=== PATIENT | female | born 1985 | race Hispanic/Latino ===

== ENCOUNTER 2020-10-22 21:39 | Observation (INO) | payer MEDICAID ==
[~2020-10-22] VITALS: Ht 165.1 cm; Wt 79.4 kg
[~2020-10-22 21:39] MED LIST: NITR100C PO
[2020-10-22 22:16] LABS: BASOPHILS % (AUTO) 0.3 % (0.0-5.0); EOSINOPHILS % (AUTO) 1.3 % (0.0-8.0); HEMATOCRIT 40.4 % (36-48); LYMPHOCYTES % (AUTO) 21.2 % (21.0-51.0); MEAN CORPUSCULAR HEMOGLOBIN 28.4 pg (27.0-33.0); MEAN CORPUSCULAR HGB CONC 33.9 g/dL (32.0-36.0); MEAN CORPUSCULAR VOLUME 83.8 fL (79-99); MONOCYTES % (AUTO) 5.5 % (3.0-13.0); NEUTROPHILS % (AUTO) 71.4 % (40.0-77.0); PLATELET COUNT (AUTO) 288 K/uL (130-400); RED BLOOD CELL COUNT(AUTO) 4.82 MIL/uL (4.00-5.50); RED CELL DISTRIBUTION WIDTH 12.3 % (11.0-15.5); WHITE BLOOD COUNT (AUTO) 10.9 K/uL (4.8-10.8)
[2020-10-22 22:24] LABS: CREATININE 0.5 mg/dL (0.5-1.5); POTASSIUM 3.5 mmol/L (3.5-5.1)
[2020-10-22] MEDS ORDERED: ONDANSETRON HCL 4 MG/2 ML VIAL ONE (23:19)
[2020-10-22] MEDS ORDERED: MORPHINE SULFATE 4 MG/1ML SYG ONE (23:20)
[2020-10-23] VITALS (22 sets, daily range): BP systolic 95–145; BP diastolic 48–98
[2020-10-23] MEDS: LACTATED RINGERS 1000ML 1,000 ML IV SCH ×2 (06:26→10:34)
[2020-10-23] MEDS ORDERED: SUCCINYLCHOLINE 200MG/10ML SYR ONE (06:33)
[2020-10-23] MEDS ORDERED: LIDOCAINE PF 2% 5ML ABBOJECT ONE (06:33)
[2020-10-23] MEDS ORDERED: MIDAZOLAM HCL 1 MG/ML 2ML VIAL ONE (06:33)
[2020-10-23] MEDS ORDERED: PROPOFOL 10 MG/ML 20ML VIAL IV ONE (06:34)
[2020-10-23] MEDS ORDERED: ROCURONIUM 10MG/1ML SYR 10 MG/ML ML ONE (06:34)
[2020-10-23] MEDS ORDERED: ONDANSETRON HCL 4 MG/2 ML VIAL ONE (06:34)
[2020-10-23] MEDS ORDERED: FENTANYL CITRATE PF 50 MCG/1 ML 2ML VIAL ONE (06:34)
[2020-10-23] MEDS ORDERED: OXYTOCIN 10 USP UNITS/ML ONE (06:44)
[2020-10-23] MEDS ORDERED: METOCLOPRAMIDE 10 MG/2 ML VIAL ONE (07:24)
== END 2020-10-23 15:05 | disposition home or self-care (01) ==
LOC: EDH 21:39 → EDHIP 21:40 → WSH 10-23 02:06
PROVIDERS: ADMIT Obstetrics & Gynecology; ATTEND Obstetrics & Gynecology
DX: O03.4 Incomplete spontaneous abortion without complication (principal); Z20.828 Contact with and (suspected) exposure to other viral communicable diseases
CPT/HCPCS: 36415 ×3; 59812; 76801; 76817; 80048; 84702; 85025 ×2; 86850 ×2; 86900 ×2; 86901 ×2; 88305; 99285; A4222; A4223; A4351; A4606; A4649; A6260; A7002; C9803; G0378 ×14; J0330; J2001; J2250; J2270; J2405 ×2; J2590; J2704; J2765; J3010; J7120 ×2; U0003

== ENCOUNTER 2020-12-28 01:18 | Emergency (ER) | payer MEDICAID ==
[2020-12-28] MEDS ORDERED: ONDANSETRON HCL 4 MG/2 ML VIAL ONE (01:39)
[2020-12-28] MEDS ORDERED: SODIUM CHLORIDE 0.9% 1000ML 1,000 ML IV ONE ×2 (01:40→02:55)
[2020-12-28 01:50] LABS: BASOPHILS % (AUTO) 0.4 % (0.0-5.0); EOSINOPHILS % (AUTO) 0.5 % (0.0-8.0); HEMATOCRIT 39.8 % (36-48); LYMPHOCYTES % (AUTO) 22.3 % (21.0-51.0); MEAN CORPUSCULAR HEMOGLOBIN 24.6 pg (27.0-33.0); MEAN CORPUSCULAR HGB CONC 32.7 g/dL (32.0-36.0); MEAN CORPUSCULAR VOLUME 75.4 fL (79-99); MONOCYTES % (AUTO) 7.6 % (3.0-13.0); NEUTROPHILS % (AUTO) 68.9 % (40.0-77.0); PLATELET COUNT (AUTO) 426 K/uL (130-400); RED BLOOD CELL COUNT(AUTO) 5.28 MIL/uL (4.00-5.50); RED CELL DISTRIBUTION WIDTH 15.3 % (11.0-15.5)
[2020-12-28 01:54] LABS: CREATININE 0.7 mg/dL (0.5-1.5); POTASSIUM 3.3 mmol/L (3.5-5.1)
[2020-12-28 01:58] LABS: ALBUMIN 4.2 g/dL (3.5-5.0); BILIRUBIN,TOTAL 0.5 mg/dL (0.2-1.0); TOTAL PROTEIN, SERUM 8.8 g/dL (6.0-8.3)
[2020-12-28 02:46] LABS: APPEARANCE,URINE CLEAR (CLEAR); BILIRUBIN,URINE SMALL (NEGATIVE); COLOR,URINE YELLOW (YELLOW); GLUCOSE, URINE (UA) NEGATIVE (NEGATIVE); KETONES,URINE >=80 mg/dL (NEGATIVE); LEUKOCYTE ESTERASE ,URINE TRACE (NEGATIVE); NITRATE,URINE NEGATIVE (NEGATIVE); OCCULT BLOOD,URINE NEGATIVE (NEGATIVE); PROTEIN,URINE 30 mg/dL (NEGATIVE); UROBILINOGEN,URINE 0.2 mg/dL (0.2-1.0)
[2020-12-28 02:51] LABS: BACTERIA,URINE Rare /HPF (None Seen); HCG,QUAL RESULT POSITIVE (NEGATIVE); MUCUS,URINE Many LPF (None Seen); RBC,URINE None Seen /HPF (0-1); SQUAMOUS EPITHELIAL CELL,UR Moderate /HPF (0-2)
== END 2020-12-28 05:10 | disposition home or self-care (01) ==
LOC: EDH 01:18
DX: O21.0 Mild hyperemesis gravidarum (principal); E86.0 Dehydration; E87.6 Hypokalemia; Z98.890 Other specified postprocedural states; Z3A.01 Less than 8 weeks gestation of pregnancy
CPT/HCPCS: 36415; 80053; 81001; 81025; 83690; 85025; 96361; 96374; 99283; J2405; J7030 ×2

== ENCOUNTER 2021-01-13 20:16 | Emergency (ER) | payer MEDICAID ==
[2021-01-13 20:38] LABS: BASOPHILS % (AUTO) 0.5 % (0.0-5.0); EOSINOPHILS % (AUTO) 0.7 % (0.0-8.0); HEMATOCRIT 40.6 % (36-48); LYMPHOCYTES % (AUTO) 20.1 % (21.0-51.0); MEAN CORPUSCULAR HEMOGLOBIN 24.5 pg (27.0-33.0); MEAN CORPUSCULAR HGB CONC 32.8 g/dL (32.0-36.0); MEAN CORPUSCULAR VOLUME 74.9 fL (79-99); MONOCYTES % (AUTO) 7.2 % (3.0-13.0); NEUTROPHILS % (AUTO) 71.3 % (40.0-77.0); PLATELET COUNT (AUTO) 333 K/uL (130-400); RED BLOOD CELL COUNT(AUTO) 5.42 MIL/uL (4.00-5.50); RED CELL DISTRIBUTION WIDTH 16.2 % (11.0-15.5); WHITE BLOOD COUNT (AUTO) 9.5 K/uL (4.8-10.8)
[2021-01-13] MEDS ORDERED: SODIUM CHLORIDE 0.9% 50 ML IV ONE (20:40)
[2021-01-13] MEDS ORDERED: SODIUM CHLORIDE 0.9% 1000ML 1,000 ML IV ONE (20:40)
[2021-01-13 20:50] LABS: CREATININE 0.7 mg/dL (0.5-1.5); POTASSIUM 3.5 mmol/L (3.5-5.1)
[2021-01-13 21:26] LABS: ALBUMIN 4.1 g/dL (3.5-5.0); BILIRUBIN,TOTAL 0.5 mg/dL (0.2-1.0); TOTAL PROTEIN, SERUM 8.4 g/dL (6.0-8.3)
[2021-01-13 23:02] LABS: APPEARANCE,URINE Cloudy (CLEAR); BILIRUBIN,URINE Negative (NEGATIVE); COLOR,URINE Yellow (YELLOW); GLUCOSE, URINE (UA) Negative (NEGATIVE); KETONES,URINE >=160 mg/dL (NEGATIVE); LEUKOCYTE ESTERASE ,URINE Moderate (NEGATIVE); NITRATE,URINE Negative (NEGATIVE); OCCULT BLOOD,URINE Negative (NEGATIVE); PH,URINE 5.5 (5.0-8.0); PROTEIN,URINE Trace mg/dL (NEGATIVE)
[2021-01-13 23:10] LABS: AMORPHOUS SEDIMENT,UR Moderate /LPF (None Seen); BACTERIA,URINE Few /HPF (None Seen); MUCUS,URINE Many LPF (None Seen); RBC,URINE 0-1 /HPF (0-1); SQUAMOUS EPITHELIAL CELL,UR Moderate /HPF (0-2)
[2021-01-13] MEDS ORDERED: CEFTRIAXONE SODIUM 1 GM ONE (23:27)
[2021-01-13] MEDS ORDERED: DEXTROSE 5 % AND 0.9 % NACL 1,000 ML IV ONE (23:31)
[2021-01-14] MEDS ORDERED: ONDANSETRON HCL 4 MG/2 ML VIAL ONE (00:40)
== END 2021-01-14 00:59 | disposition home or self-care (01) ==
LOC: EDH 20:16
DX: O21.0 Mild hyperemesis gravidarum (principal); O23.41 Unspecified infection of urinary tract in pregnancy, first trimester; O99.281 Endocrine, nutritional and metabolic diseases complicating pregnancy, first trimester; E86.0 Dehydration; Z20.822 Contact with and (suspected) exposure to COVID-19; Z3A.08 8 weeks gestation of pregnancy; Z98.890 Other specified postprocedural states
CPT/HCPCS: 36415; 76801; 80053; 81001; 83690; 84702; 85025; 87088; 87426; 96365; 96366; 96367; 96375; 99284; J0696; J2405; J7030; J7042; U0003